=== PATIENT | female | born 1935 | race Caucasian/White ===

== ENCOUNTER 2016-07-24 14:17 | Emergency (ER) | payer OTHER ==
[~2016-07-24] VITALS: Ht 157.5 cm; Wt 59.9 kg
[~2016-07-24 14:17] MED LIST: ASPIRIN81 M1 PO; ATIVAN0.5 MG PO; BENZTROPINE ME0.5 MG PO; BLM PO; LEVSIN/SL0.125 MG SL; LIPOFLAVONOID1 TAB PO; LOSARTAN POTAS100 MG PO; MASON NATURAL2000 IU PO; NORCO 5-325 TA1 EACH PO; OMEPRAZOLE40 MG PO; PREDNISONE10 MG PO; PREVACID SOLUTA15 MG PO; REGLAN10 MG PO; RITE AID BIO2500 MCG PO; ROBITUSSIN W/CO10 ML PO; TYLENOL TAB 32325 MG PO; VIBRAMYCIN 100100 MG PO; VISTARIL25 MG PO; XANAX0.5 MG PO
[2016-07-24] MEDS ORDERED: OMEPRAZOLE40 M1 PO (15:15)
[2016-07-24] MEDS ORDERED: PROPRANOLOL HCL10 M1 PO ×2 (15:15)
[2016-07-24] MEDS ORDERED: VITAMIN D2000 UNIT PO (15:16)
[2016-07-24] MEDS ORDERED: LORAZEPAM0.5 M1 PO (15:16)
[2016-07-24] MEDS ORDERED: LIPO-FLAVONOID1 EACH PO (15:17)
[2016-07-24] MEDS ORDERED: ACETAMINOPHEN500 M4 PO (15:17)
[2016-07-24] MEDS ORDERED: BIOTIN5000 MCG PO (15:17)
[2016-07-24] MEDS ORDERED: ASPIRIN EC81 M1 PO (15:18)
[2016-07-24 15:24] LABS: ABSOLUTE BASOPHIL COUNT 0.1 /CUMM (0.0-0.2); ABSOLUTE EOSINOPHIL COUNT 0.1 /CUMM (0.0-0.7); ABSOLUTE GRANULOCYTE CT 3.2 /CUMM (1.4-6.5); ABSOLUTE LYMPH COUNT 1.9 /CUMM (1.2-3.4); ABSOLUTE MONOCYTE COUNT 0.7 /CUMM (0.10-0.60); BASOPHIL % 0.9 % (0.0-2.0); EOSINOPHIL % 1.6 % (0-5); HEMATOCRIT 39.5 % (37-47); MEAN CORPUSCULAR HGB 29.4 PG (27.0-31.0); MEAN CORPUSCULAR HGB CONC 33.3 G/DL (33.0-37.0); MEAN CORPUSCULAR VOLUME 88.2 FL (81.0-99.0); MEAN PLATELET VOLUME 6.9 FL (7.4-10.4); PLATELET COUNT 265 /CUMM (130-400); RBC DISTRIBUTION WIDTH 13.8 % (11.5-14.5); RED BLOOD CELL CT 4.48 /CUMM (4.20-5.40)
--- NOTE | 2016-07-24 15:36 | RADIOLOGY REPORT ---
EXAMINATION: XR CHEST CLINICAL INFORMATION: Chest pain COMPARISON: Chest x-ray 02/19/2016 TECHNIQUE: 2 views of the chest were obtained. FINDINGS: No significant abnormality is noted involving the heart, lungs, mediastinum, bony thorax or soft tissues. Surgical clips right upper quadrant of the abdomen. IMPRESSION: No acute abnormality the chest.
--- NOTE | 2016-07-24 15:42 | ED GENERAL ADULT ---
See Addendum History of Present Illness General Chief Complaint: General Adult Stated Complaint: INDIGESTION, JOINT ACHES Source: patient Exam Limitations: no limitations Allergies Coded Allergies: morphine (Severe, "MY WHOLE BODY SEIZED UP" 02/19/16) cashew nut (Intermediate, HIVES 02/19/16) pine nut (Intermediate, HIVES 02/19/16) codeine (PT UNSURE 02/19/16) lisinopril (UNKNOWN PER PT BELIEVES SHE DOUBLED OVER IN PAIN 07/24/16) sulfamethoxazole (RASH 02/19/16) penicillamine ("C-DIFF" 02/19/16) Uncoded Allergies: PINE TREES (03/29/15) Triage Note: PT STATES SHE IS HAVING INDIGESTION FOR THE PAST FEW DAYS AND STATES SHE HAS BEEN UNABLE TO EAT. PT REPORTS SHE IS HAVING PAIN IN HER LEFT HEEL AND JOINT PAIN. PT STATES SHE IS ALSO HAVING SOB WITH HER CENTRAL TREMORS, WORSE THE LAST FEW DAYS. Triage Nurses Notes Reviewed? yes HPI: This patient is an 81-year-old female with past medical history including arthritis and GERD who presented to the emergency department today for evaluation of indigestion and joint pain. The patient reported that of the last several days she has been having approximately 5 episodes of, "indigestion," each day. She reported that the symptoms last anywhere from 5 minutes to, "three quarters of an hour." She reported that it feels more like pain. She reported the pain gets up to an 8 out of 10, is sharp and nonradiating. She has been taking Maalox without any relief of her symptoms. The patient denied any chest pain, difficult breathing, headaches, visual changes, arm pain, jaw pain, abdominal pain, or vomiting. She did report associated nausea. Patient also reported that she is having a difficult time bending her when she finger on her left hand. She reported that she saw her inserter operator who told her that it was arthritis. She also reported intermittently getting pain in the top of her left foot. She is unsure as to how long this has been going on for. (ROMEO ZAIDI,SAY) Vital Signs & Intake/Output Vital Signs & Intake/Output Vital Signs Date Time Temp Pulse Resp B/P B/P Pulse O2 O2 Flow FiO2 Mean Ox Delivery Rate 07/24 1912 97.5 67 20 172/66 95 Room Air 07/24 1652 97.7 57 20 140/78 97 Room Air 07/24 1431 98.0 62 16 154/80 93 Room Air ED Intake and Output 07/25 0000 07/24 1200 Intake Total Output Total 100 Balance -100 Output, Urine 100 Patient 132 lb Weight Weight Reported by Patient Measurement Method Reconcile Medications Acetaminophen 500 MG TABLET 2 TAB PO QAM PAIN (Reported) Aspirin (Ecotrin*) 81 MG TABLET.DR 1 TAB PO QPM HEART/BLOOD (Reported) Bioflav,Lemon/Vit Bcomp,C (Lipo-Flavonoid Plus Caplet) (Unknown Strength) TABLET (Unknown Dose) PO QPM SUPPLEMENT (Reported) Biotin 5,000 MCG TAB.RAPDIS 1 TAB PO QPM SUPPLEMENT (Reported) Cholecalciferol (Vitamin D3) (Vitamin D) 2,000 UNIT CAPSULE 1 CAP PO QPM SUPPLEMENT (Reported) Hydrocodone/Acetaminophen ([place] 5-325 Tablet) 5 MG-325 MG TABLET 1-2 TAB PO Q6P PRN PAIN Ketorolac Tromethamine 10 MG TABLET 1 TAB PO Q6P PRN pain Lorazepam 0.5 MG TABLET 2 TAB PO QPM SLEEP (Reported) Omeprazole 40 MG CAPSULE.DR 1 CAP PO QAM GI (Reported) Propranolol HCl 10 MG TABLET 2 TAB PO QAM ESSENTIAL TREMORS (Reported) Propranolol HCl 10 MG TABLET 1 TAB PO QPM ESSENTIAL TREMORS (Reported) (IRMA LOMBARDI,NITZA Thrasher) Past History Travel History Traveled to [place] past 21 day No Medical History Any Pertinent Medical History? see below for history Neurological: Parkinson's disease, CENTRAL TREMOR DISORDER EENT: hearing loss Cardiovascular: hypertension, "LEAKY VALVE" Respiratory: NONE, "FAMILY HX TB, I TEST + " Gastrointestinal: GERD, C DIFF Hepatic: NONE Renal: NONE Musculoskeletal: osteoarthritis, POLYMYALGICARUMATICA Psychiatric: NONE Endocrine: hypothyroidism Blood Disorders: NONE Cancer(s): NONE EQUINE INTERNSHIP/Reproductive: NONE Surgical History Surgical History: non-contributory Psychosocial History Who do you live with Spouse What is your primary language Montenegrin Tobacco Use: Never used ETOH Use: occasional use Illicit Drug Use: denies illicit drug use Family History Hx Contributory? No (ROMEO ZAIDI,SAY) Review of Systems Review of Systems Constitutional: Reports: no symptoms. EENTM: Reports: no symptoms. Respiratory: Reports: no symptoms. Cardiovascular: Reports: no symptoms. GI: Reports: see HPI. Genitourinary: Reports: no symptoms. Musculoskeletal: Reports: see HPI. Skin: Reports: no symptoms. Neurological/Psychological: Reports: no symptoms. All Other Systems: Reviewed and Negative (ROMEO ZAIDI,SAY) Physical Exam Physical Exam General Appearance: well developed/nourished, no apparent distress, alert, awake Comments: Well-developed well-nourished person in no acute distress HEENT: Normal EENT exam, head normocephalic, moist mucous membranes Pupils equally round and reactive to light. Neck: Supple, no lymphadenopathy Back: Normal inspection Cardiovascular: Regular rate and rhythm with no murmurs, rubs, or gallops Respiratory: Chest nontender. No respiratory distress. Breath sounds clear to auscultation bilaterally Abdomen: Soft, nontender and nondistended. No organomegaly. No peritoneal signs. No rebound or guarding Left hand: Decreased active and passive range of motion of the second digit. No overlying erythema or ecchymosis. No edema. Radial pulse 2+ and strong Right foot: No effusions overlying erythema or ecchymosis. No bony or muscular deformity. Nontender to palpation. Full range of motion. Dorsalis pedis and posterior tibialis pulses 2+ and strong Neuro: Alert oriented x3, cranial nerves II through XII grossly intact. Skin: No appreciable rash on exposed skin, skin is warm and dry. Psych: Mood and affect is normal Core Measures ACS in differential dx? Yes CVA/TIA Diagnosis: No Severe Sepsis Present: No Septic Shock Present: No (ROMEO ZAIDI,SAY) Progress Differential Diagnoses I considered the following diagnoses in my evaluation of the patient: [ Rheumatoid arthritis, osteoarthritis, degenerative joint disease, ACS, PE, GERD] Diagnostic Imaging: Viewed by Me: Radiology Read. Discussed w/RAD: Radiology Read. Radiology Impression: PATIENT: MELE SIMMS PRESENT AGE: 81 PATIENT ACCOUNT NO: [id number] : 36 LOCATION: [facility] ORDERING PHYSICIAN: SAY WALTERS PA-C SERVICE DATE: 07/24/16-0608 EXAM TYPE: RAD - XRY-CHEST XRAY, PA AND LATERAL EXAMINATION: XR CHEST CLINICAL INFORMATION: Chest pain COMPARISON: Chest x-ray 02/19/2016 TECHNIQUE: 2 views of the chest were obtained. FINDINGS: No significant abnormality is noted involving the heart, lungs, mediastinum, bony thorax or soft tissues. Surgical clips right upper quadrant of the abdomen. IMPRESSION: No acute abnormality the chest. DICTATED BY: LEVON CUNNINGHAM MD DATE/TIME DICTATED:07/24/161530 PATIENT CARE DIRECTOR :CATHI DATE/TIME TRANSCRIBED:07/24/161530 CONFIDENTIAL, DO NOT COPY WITHOUT APPROPRIATE AUTHORIZATION. <Electronically signed in Other Vendor System> SIGNED BY: LEVON CUNNINGHAM MD 07/24/161535, PATIENT: MELE SIMMS PRESENT AGE: 81 PATIENT ACCOUNT NO: [id number] : 36 LOCATION: [facility] ORDERING PHYSICIAN: SAY WALTERS PA-C SERVICE DATE: 07/24/16 EXAM TYPE: RAD - XRY-HAND, LEFT EXAMINATION: XR HAND, LEFT CLINICAL INFORMATION: Left hand pain. COMPARISON: None. TECHNIQUE: AP, lateral, and oblique views of the left hand. FINDINGS: Multiple views of the left hand demonstrate demineralization of the visualized bones. No acute osseous or articular abnormality of the left hand is identified. Of note, there is joint space narrowing involving the distal interphalangeal joints of all 5 digits of the left hand, indicative of osteoarthrosis of the left hand. There is also minimal joint space narrowing involving the proximal interphalangeal joints of the left hand. There is mild subluxation of the left index finger with minimal radial displacement of the middle phalanx of the digit relative to the proximal phalanx. No cortical erosions are identified. There is no significant periarticular lucency. There are mild degenerative changes at the base of the left thumb. IMPRESSION: Degenerative changes involving the distal interphalangeal joints of the left hand, as described above. There are degenerative changes involving the proximal interphalangeal joints of the left hand although milder in severity relative to the distal interphalangeal joints. No cortical erosions are identified. Mild subluxation of the left index finger at the level of the proximal interphalangeal joint, without dislocation. DICTATED BY: RAJNI WALDEN MD DATE/TIME DICTATED:07/24/161622 PATIENT CARE DIRECTOR:MALAVE DATE/TIME TRANSCRIBED:07/24/161622 CONFIDENTIAL, DO NOT COPY WITHOUT APPROPRIATE AUTHORIZATION. <Electronically signed in Other Vendor System> SIGNED BY: RAJNI WALDEN MD 07/24/168, PATIENT: MELE SIMMS PRESENT AGE: 81 PATIENT ACCOUNT NO: [id number] : 36 LOCATION: [facility] ORDERING PHYSICIAN: SAY WALTERS PA-C SERVICE DATE: 07/24/16 EXAM TYPE: RAD - XRY-FOOT COMPLETE, R EXAMINATION: XR FOOT, RIGHT CLINICAL INFORMATION: Pain. Rule out arthritis. COMPARISON: None TECHNIQUE: AP, lateral, and oblique views of the right foot. FINDINGS: Moderate hallux valgus (metatarsophalangeal angle of 28 degrees). Mild metatarsus primus varus (first intermetatarsal angle of 12.5 degrees). Mild to moderate degenerative arthritis is present at the first MTP joint with a bunion deformity medially. Moderate degenerative arthritis present in the midfoot at the second and third tarsometatarsal joints. More mild degenerative arthritis is present in the other midfoot joints. There is mild degenerative arthritis in the interphalangeal joints of the toes. Bones are osteopenic. No acute fractures. Moderate sized enthesopathic spur is present at the Achilles tendon insertion on the calcaneus. IMPRESSION: 1. Moderate degenerative arthritis at the second and third tarsometatarsal joints 2. Moderate hallux valgus and mild metatarsus primus varus with mild to moderate first MTP degenerative arthritis 3. Osteopenia DICTATED BY: JEANNETTE MIRAMONTES MD DATE/TIME DICTATED:07/24/161624 PATIENT CARE DIRECTOR:CATHI DATE/TIME TRANSCRIBED:07/24/161624 CONFIDENTIAL, DO NOT COPY WITHOUT APPROPRIATE AUTHORIZATION. <Electronically signed in Other Vendor System> SIGNED BY: JEANNETTE MIRAMONTES MD 07/24/16 1631 Initial ED EKG: normal axis, normal intervals, normal sinus rhythm, no ST T wave changes, 65 bpm Repeat EKG: unchanged (54 BPM) Comments: 07/24/2016 6:02:17 PM: Dr. Everett was at the patient's bedside for [id number] evaluation. He believes that the subluxation is based on this patient's arthritis in the hand. He is recommending getting a second set of troponins for this patient. She is in agreement with the plan. (ROMEO ZAIDI,SAY) Plan of Care: Orders Procedure Date/time Status TROPONIN LEVEL 07/24 191 Complete EKG 07/24 191 Active Add-on Test (ER Only) 07/24 1548 Active TROPONIN LEVEL 07/24 1514 Complete MAGNESIUM 07/24 1503 Complete LYME TITRE 07/24 1503 Complete LIPASE 07/24 1503 Complete DIRECT BILIRUBIN 07/24 1503 Complete COMPREHENSIVE METABOLIC PANEL 07/24 1503 Complete CBC WITHOUT DIFFERENTIAL 07/24 1503 Complete AMYLASE 07/24 1503 Complete EKG 07/24 1433 Active Laboratory Tests 07/24/16 1921: Troponin I < 0.01 07/24/16 1514: Anion Gap 14, Estimated GFR 53 L, BUN/Creatinine Ratio 19.0, Glucose 93, Calcium 9.7, Magnesium 1.8, Total Bilirubin 0.6, Direct Bilirubin 0.3, AST 21, ALT 28, Alkaline Phosphatase 76, Troponin I < 0.01, Total Protein 7.2, Albumin 4.3, Globulin 2.9, Albumin/Globulin Ratio 1.5, Amylase 95, Lipase 178, CBC w Diff NO MAN DIFF REQ, RBC 4.48, MCV 88.2, MCH 29.4, RDW 13.8, MPV 6.9 L, Gran % 53.0, Lymphocytes % 32.3, Monocytes % 12.2 H, Eosinophils % 1.6, Basophils % 0.9, Absolute Granulocytes 3.2, Absolute Lymphocytes 1.9, Absolute Monocytes 0.7 H, Absolute Eosinophils 0.1, Absolute Basophils 0.1, PUBS MCHC 33.3, Lyme Disease Antibody 0.08 Departure Departure Disposition: HOME OR SELF CARE Condition: Stable Clinical Impression Primary Impression: GERD (gastroesophageal reflux disease) Qualifiers: Esophagitis presence: esophagitis presence not specified Qualified Code: K21.9 - Gastro-esophageal reflux disease without esophagitis Referrals: JESSE LOMBARDI,JENNIFER BRITO MD,JAVY (PCP/Family) Additional Instructions: Please rest and stay hydrated. Take medication for pain as prescribed; be aware that Toradol can be very harsh on the stomach; please only take as needed. Follow-up with the pan shover whose information has been provided to you in this packet. Return for any worsening symptoms or concerns. Departure Forms: Customer Survey General Discharge Information Prescriptions: Current Visit Scripts Ketorolac Tromethamine 1 TAB PO Q6P PRN pain #10 TAB (SAY WALTERS PA-C) PA/TOOL LIAISON Co-Sign Statement Statement: ED Attending supervision documentation- [X] I saw and evaluated the patient. I have also reviewed all the pertinent lab results and diagnostic results. I agree with the findings and the plan of care as documented in the PA's/TOOL LIAISON's documentation. [] I have reviewed the ED Record and agree with the PA's/TOOL LIAISON's documentation. [] Additions or exceptions (if any) to the PAs/TOOL LIAISON's note and plan are summarized below: [] (ADA EVERETT DO) PA/TOOL LIAISON Co-Sign Statement Statement: ED Attending supervision documentation- [x] I saw and evaluated the patient. I have also reviewed all the pertinent lab results and diagnostic results. I agree with the findings and the plan of care as documented in the PA's/TOOL LIAISON's documentation. [] I have reviewed the ED Record and agree with the PA's/TOOL LIAISON's documentation. [] Additions or exceptions (if any) to the PAs/TOOL LIAISON's note and plan are summarized below: [] (IRMA LOMBARDI,NITZA Thrasher) Critical Care Note Critical Care Note Critical Care Time: non-applicable (SAY WALTERS PA-C)
--- NOTE | 2016-07-24 16:28 | RADIOLOGY REPORT ---
EXAMINATION: XR HAND, LEFT CLINICAL INFORMATION: Left hand pain. COMPARISON: None. TECHNIQUE: AP, lateral, and oblique views of the left hand. FINDINGS: Multiple views of the left hand demonstrate demineralization of the visualized bones. No acute osseous or articular abnormality of the left hand is identified. Of note, there is joint space narrowing involving the distal interphalangeal joints of all 5 digits of the left hand, indicative of osteoarthrosis of the left hand. There is also minimal joint space narrowing involving the proximal interphalangeal joints of the left hand. There is mild subluxation of the left index finger with minimal radial displacement of the middle phalanx of the digit relative to the proximal phalanx. No cortical erosions are identified. There is no significant periarticular lucency. There are mild degenerative changes at the base of the left thumb. IMPRESSION: Degenerative changes involving the distal interphalangeal joints of the left hand, as described above. There are degenerative changes involving the proximal interphalangeal joints of the left hand although milder in severity relative to the distal interphalangeal joints. No cortical erosions are identified. Mild subluxation of the left index finger at the level of the proximal interphalangeal joint, without dislocation.
--- NOTE | 2016-07-24 16:31 | RADIOLOGY REPORT ---
EXAMINATION: XR FOOT, RIGHT CLINICAL INFORMATION: Pain. Rule out arthritis. COMPARISON: None TECHNIQUE: AP, lateral, and oblique views of the right foot. FINDINGS: Moderate hallux valgus (metatarsophalangeal angle of 28 degrees). Mild metatarsus primus varus (first intermetatarsal angle of 12.5 degrees). Mild to moderate degenerative arthritis is present at the first MTP joint with a bunion deformity medially. Moderate degenerative arthritis present in the midfoot at the second and third tarsometatarsal joints. More mild degenerative arthritis is present in the other midfoot joints. There is mild degenerative arthritis in the interphalangeal joints of the toes. Bones are osteopenic. No acute fractures. Moderate sized enthesopathic spur is present at the Achilles tendon insertion on the calcaneus. IMPRESSION: 1. Moderate degenerative arthritis at the second and third tarsometatarsal joints 2. Moderate hallux valgus and mild metatarsus primus varus with mild to moderate first MTP degenerative arthritis 3. Osteopenia
[2016-07-24 19:12] VITALS: BP 172/66
[2016-07-24] MEDS ORDERED: KETOROLAC TROME10 M1 PO (20:14)
== END 2016-07-24 20:26 ==
LOC: ERH 14:17
PROVIDERS: Physician Assistant
DX: K21.9 Gastro-esophageal reflux disease without esophagitis (principal); M25.542 Pain in joints of left hand
CPT/HCPCS: 86618; 73130-LT; 73630-RT; 93005; 93010; 96372; J1885

== ENCOUNTER 2017-12-05 14:38 | Emergency (ER) | payer OTHER ==
[~2017-12-05 14:38] MED LIST changes: +ACETAMINOPHEN500 M4 PO; +ASPIRIN EC81 M1 PO; +BIOTIN5000 MCG PO; +DULOXETINE HCL20 MG PO; +KETOROLAC TROME10 M1 PO; +LIPO-FLAVONOID1 EACH PO; +LORAZEPAM0.5 M1 PO; +OMEPRAZOLE40 M1 PO; +PROPRANOLOL HCL10 M1 PO; +VITAMIN D2000 UNIT PO
[2017-12-05 16:36] LABS: ABSOLUTE BASOPHIL COUNT 0 /CUMM (0.0-0.2); ABSOLUTE EOSINOPHIL COUNT 0.1 /CUMM (0.0-0.7); ABSOLUTE GRANULOCYTE CT 2.9 /CUMM (1.4-6.5); ABSOLUTE LYMPH COUNT 1.8 /CUMM (1.2-3.4); ABSOLUTE MONOCYTE COUNT 0.5 /CUMM (0.10-0.60); BASOPHIL % 0.8 % (0.0-2.0); EOSINOPHIL % 1.1 % (0-5); GRANULOCYTE % 55.1 % (42.2-75.2); HEMATOCRIT 39.3 % (37-47); MEAN CORPUSCULAR HGB 29.8 PG (27.0-31.0); MEAN CORPUSCULAR HGB CONC 33.3 G/DL (33.0-37.0); MEAN CORPUSCULAR VOLUME 89.3 FL (81.0-99.0); MEAN PLATELET VOLUME 6.7 FL (7.4-10.4); PLATELET COUNT 295 /CUMM (130-400); RBC DISTRIBUTION WIDTH 13.6 % (11.5-14.5); WHITE BLOOD CELL COUNT 5.3 /CUMM (4.8-10.8)
--- NOTE | 2017-12-05 18:53 | ED GENERAL ADULT ---
History of Present Illness General Chief Complaint: Dizziness Stated Complaint: DIZZINESS WEAKNESS Source: patient, family Exam Limitations: no limitations Vital Signs & Intake/Output Vital Signs & Intake/Output Vital Signs Date Time Temp Pulse Resp B/P B/P Pulse O2 O2 Flow FiO2 Mean Ox Delivery Rate 12/05 1921 97.6 70 20 145/85 99 Room Air 12/05 1713 98 Room Air 12/05 1713 98.0 67 24 197/93 100 Room Air 12/05 1448 97.2 76 20 171/92 97 Room Air Room Air ED Intake and Output 12/06 0000 12/05 1200 Intake Total Output Total 300 Balance -300 Output, Urine 300 Allergies Coded Allergies: morphine (Severe, "MY WHOLE BODY SEIZED UP" 12/05/17) cashew nut (Intermediate, HIVES 12/05/17) pine nut (Intermediate, HIVES 12/05/17) codeine (PT UNSURE 12/05/17) lisinopril (UNKNOWN PER PT BELIEVES SHE DOUBLED OVER IN PAIN 12/05/17) sulfamethoxazole (RASH 12/05/17) penicillamine ("C-DIFF" 12/05/17) Uncoded Allergies: PINE TREES (03/29/15) Reconcile Medications Acetaminophen 500 MG TABLET 2 TAB PO QAM PRN PAIN (Reported) Aspirin (Ecotrin*) 81 MG TABLET.DR 1 TAB PO EOD HEART/BLOOD (Reported) Bioflav,Lemon/Vit Bcomp,C (Lipo-Flavonoid Plus Caplet) (Unknown Strength) TABLET (Unknown Dose) PO QPM SUPPLEMENT (Reported) Biotin 5,000 MCG TAB.RAPDIS 1 TAB PO QPM SUPPLEMENT (Reported) Cholecalciferol (Vitamin D3) (Vitamin D) 2,000 UNIT CAPSULE 1 CAP PO QPM SUPPLEMENT (Reported) Lorazepam 0.5 MG TABLET 1 TAB PO TID ANXIETY (Reported) Omeprazole 40 MG CAPSULE.DR 1 CAP PO BID GI (Reported) Triage Note: PT TO ED FOR C/C OF SOB, LIGHTHEADEDNESS (WORSE WITH POSITION CHANGES) AND WORSENING TREMORS. PT AFEBRILE, RECENTLY DIAGNOSED WITH A NEW ONSET OF COPD (PT HAD CXR YESTERDAY). Triage Nurses Notes Reviewed? yes HPI: 82 year old female with PMH essential tremor, ?parkinsons dz, umbilical hernia, anxiety presenting with progressive dyspnea. Patient states she has been SOB for a few years now. She was seen by her doctor last week for progressive SOB and a CXR was ordered. Patient had CXR done yesterday and was notified by her doctor that she has COPD and an inhaler was ordered. She has not filled this prescription yet. She has no previous respiratory history. She reports associated dry cough. She states 'I just don't feel well'. Of note: she states her neurologist (Dr. Myers at [facility]) recently stopped her propranolol two weeks ago 2/2 orthostatic hypotension. She reports her tremors make her feel very anxious. Patient does report episodes of dizziness that are chronic with associated nausea. Patient does drink 2 beers per day which she states helps relieve sx of essential tremor. Denies history of tobacco use or second hand smoke. Denies chest pain, fever, chills, vomiting, abdominal pain, syncope. (Rosa Ash MD) Past History Travel History Traveled to [place] past 21 day No Medical History Any Pertinent Medical History? see below for history Neurological: Parkinson's disease, CENTRAL TREMOR DISORDER EENT: hearing loss Cardiovascular: hypertension, "LEAKY VALVE" Respiratory: NONE, "FAMILY HX TB, I TEST + " Gastrointestinal: GERD, C DIFF ABD HERNIA Hepatic: NONE Renal: NONE Musculoskeletal: osteoarthritis, POLYMYALGICARUMATICA Psychiatric: NONE Endocrine: hypothyroidism Blood Disorders: NONE Cancer(s): NONE AGER TENDER/Reproductive: NONE Surgical History Surgical History: non-contributory Psychosocial History Who do you live with Spouse What is your primary language Mongolian Tobacco Use: Never used Family History Hx Contributory? No (Rosa Ash MD) Review of Systems Review of Systems Constitutional: Reports: no symptoms. EENTM: Reports: no symptoms. Respiratory: Reports: cough, short of breath. Denies: sputum production, wheezing. Cardiovascular: Reports: no symptoms. GI: Reports: nausea. Denies: abdominal pain, diarrhea, changes in stool, vomiting. Genitourinary: Reports: no symptoms. Musculoskeletal: Reports: no symptoms. Skin: Reports: no symptoms. Neurological/Psychological: Reports: anxiety, tremors. Denies: ataxia, confusion, depressed, headache. (Rosa Ash MD) Physical Exam Physical Exam General Appearance: well developed/nourished, no apparent distress, awake, Shortness of breath. Speaks in broken sentences Head: atraumatic, normal appearance Eyes: Left: normal appearance. Neck: normal inspection Respiratory: normal breath sounds, short of breath; speaking in broken sentences Cardiovascular: regular rate/rhythm, normal peripheral pulses Peripheral Pulses: 2+ radial (R), 2+ radial (L) Gastrointestinal: normal bowel sounds, soft, non-tender Back: normal inspection Neurologic/Psych: no motor/sensory deficits, awake, alert, oriented x 3, normal gait, scoop machine operator II-XII nml as tested, essential tremor RUE > LUE Skin: intact, normal color, warm/dry Core Measures ACS in differential dx? No CVA/TIA Diagnosis: No Sepsis Present: No Sepsis Focused Exam Completed? No (Mihir LOMBARDI,Rosa) Progress Differential Diagnoses I considered the following diagnoses in my evaluation of the patient: [ orthostatic hypotension; PE; arrhythmia; dehydration; infection] After workup in the ED, patient's breathing has improved and she was able to ambulate without shortness of breath. Laboratory work up was negative for any infectious process, negative d-dimer, negative troponin. Her oxygen saturation was above 95% on RA. She states she feels as though she would feel better if she started back on her propranolol. She would like to follow up with her regular doctor; sales department manager; and see a Labeling Machine Operator as an outpatient. She is stable for discharge home with outpatient follow up. Plan of Care: Orders Procedure Date/time Status Add-on Test (ER Only) 12/05 1907 Active D-DIMER 12/05 1846 Complete URINALYSIS 12/05 1507 Complete TROPONIN LEVEL 12/05 1507 Complete COMPREHENSIVE METABOLIC PANEL 12/05 1507 Complete CBC WITHOUT DIFFERENTIAL 12/05 1507 Complete EKG 12/05 1439 Active Laboratory Tests 12/05/17 1635: Urine Color YEL, Urine Clarity HAZY H, Urine pH 7.0, Ur Specific [place] 1.010, Urine Protein NEG, Urine Ketones NEG, Urine Nitrite NEG, Urine Bilirubin NEG, Urine Urobilinogen 0.2, Ur Leukocyte Esterase SMALL H, Ur Microscopic SEDIMENT EXAMINED, Urine RBC FEW H, Urine WBC 1-3 H, Ur Epithelial Cells MOD H, Urine Hemoglobin TRACE-INTACT, Urine Glucose NEG 12/05/17 1615: Anion Gap 11, Estimated GFR > 60, BUN/Creatinine Ratio 23.3, Glucose 93, Calcium 9.9, Total Bilirubin 0.3, AST 20, ALT 25, Alkaline Phosphatase 63, Troponin I < 0.01, Total Protein 6.8, Albumin 4.3, Globulin 2.5, Albumin/Globulin Ratio 1.7, D-Dimer High Sensitivty < 200, CBC w Diff NO MAN DIFF REQ, RBC 4.40, MCV 89.3, MCH 29.8, MCHC 33.3, RDW 13.6, MPV 6.7 L, Gran % 55.1, Lymphocytes % 33.4, Monocytes % 9.6 H, Eosinophils % 1.1, Basophils % 0.8, Absolute Granulocytes 2.9, Absolute Lymphocytes 1.8, Absolute Monocytes 0.5, Absolute Eosinophils 0.1, Absolute Basophils 0 CXR Impression: done 12/04/17 ordered by PCP: showed obstructive pattern consistent with COPD Initial ED EKG: normal axis, none, normal intervals, normal p-waves, normal QRS complex, normal sinus rhythm Prior EKG: unchanged (Mihir LOMBARDI,Rosa) Differential Diagnoses I considered the following diagnoses in my evaluation of the patient: Comments: 1911 82-year-old female presents with shortness of breath. She reports progressive shortness of breath over many weeks. She reports dyspnea on exertion over many weeks. The patient also has other issues like chronic tremors for which she has been treated in the past. The patient was taken off the propranolol/BZD which seemed to have worked best for her in September. The patient also has dizziness which is chronic and unchanged. The patient is here for progressive shortness of breath for many weeks. Physical exam was benign. The patient has resting tremors. But the chest is clear. The patient is walking without any distress. The patient has never smoked, has never had asthma but apparently a chest x-ray done yesterday showed COPD-like changes. At this time patient was given an inhaler which she has not started. The patient symptoms are acute on chronic. I will get a d-dimer. The patient will be evaluated with ambulation. 2011 the patient's workup is negative including a d-dimer. Ambulatory sat was 96% with a heart rate in the early 90s. The patient was in no distress. Talk to me throughout when she was walking she was not short of breath. We walked almost 20 yards. EKG: Sinus, rate of 77, left axis deviation, normal intervals, no acute ST-T changes. Compared to the EKG from October 08, 2017: No significant change. I discussed various treatment options the patient including observation and keeping the patient overnight. The patient really wants to go home. Progressive symptoms without any chest pain, questionable chest x-ray findings yesterday, negative d-dimer: The patient is safe to discharge home. She has a sales department manager but she is unsure why, she denies any known coronary artery disease. Her EKG does not show any acute change in her troponin is negative. The patient has been asked to follow-up with her sales department manager. We will refer the patient to pulmonology. Patient is requesting restarting of her propanolol. She used to be on 20 mg twice daily, we will start her on 10 mg twice daily and follow-up with cardiology. The patient was taken off it because there was a risk of hypotension and subsequent fall, I discussed the risk in detail with the patient and with sons. They are all comfortable because the patient was much happier when she was on the medication. For the resting tremors the patient will continue her Xanax. The patient and family also refused a safety (PT) evaluation. (Luci Cooper MD) Departure Departure Time of Disposition: 2022 Condition: Stable Departure Forms: Customer Survey General Discharge Information (Mihir LOMBARDI,Rosa) Departure Time of Disposition: 2015 Disposition: HOME OR SELF CARE Clinical Impression Primary Impression: Dyspnea Referrals: Giselle LOMBARDI,Ton Benito MD,Carmelo Balderas MD,Julien Delacruz MD,Jeremy (PCP/Family) Additional Instructions: If you feel dizzy or lightheaded, stop the propranolol. Follow-up with your sales department manager and with the ager tender and her primary doctor. Continue your anxiety medications as before. If you have any questions or concerns, return to the emergency room. (Luci Cooper MD) Critical Care Note Critical Care Note Critical Care Time: non-applicable (Luci Cooper MD)
[2017-12-05 19:22] VITALS: BP 145/85
== END 2017-12-05 20:45 ==
LOC: ERH 14:38
PROVIDERS: Physician Assistant Medical
DX: R06.00 Dyspnea, unspecified (principal); R06.02 Shortness of breath; R42 Dizziness and giddiness; R11.0 Nausea; I10 Essential (primary) hypertension; E03.9 Hypothyroidism, unspecified; Z79.82 Long term (current) use of aspirin
CPT/HCPCS: 81001; 93005; 93010